=== PATIENT | male | born 1995 | race Caucasian/White ===

== ENCOUNTER 2017-06-12 20:12 | Emergency (ER) | payer BC ==
[~2017-06-12] VITALS: Ht 172.7 cm; Wt 59.0 kg
[2017-06-12 20:40] VITALS: Ht 172.7 cm; Wt 59.0 kg
[2017-06-12 22:12] VITALS: BP 124/58
== END 2017-06-12 22:12 | disposition home or self-care (01) ==
LOC: ED 20:12
DX: H66.92 Otitis media, unspecified, left ear (principal)

== ENCOUNTER 2018-08-28 22:32 | Emergency (ER) | payer MEDICAID ==
[~2018-08-28] VITALS: Ht 172.7 cm; Wt 58.5 kg
[2018-08-28 22:37] VITALS: Ht 172.7 cm; Wt 58.5 kg
[2018-08-29 00:18] VITALS: BP 120/84
== END 2018-08-28 23:44 | disposition home or self-care (01) ==
LOC: ED 22:32
DX: J40 Bronchitis, not specified as acute or chronic (principal)
CPT/HCPCS: 87804; J1100; Q0092